=== PATIENT | male | born 1990 | race African-American/Black ===

== ENCOUNTER 2017-03-07 10:19 | Emergency (ER) | payer BC ==
[2017-03-07] MEDS ORDERED: CLINDAMYCIN 300 MG/D5W RTU 300 MG/50 ML RTUPB IV ONE (10:52)
[2017-03-07] MEDS ORDERED: KETOROLAC TROMETHAMINE INJ/PF 30 MG/1 ML SDV IV ONE (10:52)
[2017-03-07] MEDS ORDERED: DEXAMETHASONE SOD PHOS INJ 10 MG/1 ML VIAL IM ONE (10:52)
--- NOTE | 2017-03-07 11:30 | ER Document Report ---
ED ENT - General Chief Complaint: Sore Throat Stated Complaint: SORE THROAT Time Seen by Provider: 03/07/17 10:43 Mode of Arrival: Ambulatory Information source: Patient Notes: 27-year-old male presents to ED for complaint of sore throat with very enlarged tonsils with exudate sinus drainage and pressure and an earache. He states he has difficulty swallowing. TRAVEL OUTSIDE OF THE [place] IN LAST 30 DAYS: No - HPI Patient complains to provider of: Ear problem, Nose problem, Throat problem Onset: Yesterday Onset/Duration: Gradual Quality of pain: Achy, Dull, Sharp Severity: Moderate Pain Level: 3 Context: Recent Illness Location of pain: Ears, Nose, Sinus, Throat Associated symptoms: Ear pain, Fever, Runny nose, Sinus pain, Sinus drainage, Sore throat Similar symptoms previously: No Recently seen / treated by doctor: No - Related Data Allergies/Adverse Reactions: Penicillins Adverse Reaction (Verified 03/07/17 10:21) Past Medical History - General Information source: Patient - Social History Smoking Status: Never Smoker Cigarette use (# per day): No Chew tobacco use (# tins/day): No Smoking Education Provided: No Frequency of alcohol use: None Drug Abuse: None Lives with: Family Family History: Arthritis, Hypertension. denies: CAD, COPD, CVA, DM, Hyperlipidemia, Malignancy, Thyroid Disfunction Patient has suicidal ideation: No Patient has homicidal ideation: No - Past Medical History Cardiac Medical History: Reports: None Pulmonary Medical History: Reports: None EENT Medical History: Reports: None Neurological Medical History: Reports: None Endocrine Medical History: Reports: None Renal/ Medical History: Reports: None Malignancy Medical History: Reports None GI Medical History: Reports: None Musculoskeltal Medical History: Reports None Skin Medical History: Reports None Psychiatric Medical History: Reports: None Traumatic Medical History: Reports: None Infectious Medical History: Reports: None Surgical Hx: Negative Past Surgical History: Reports: None - Immunizations Immunizations up to date: Yes Hx Diphtheria, Pertussis, Tetanus Vaccination: Yes Review of Systems - Review of Systems Constitutional: No symptoms reported EENT: Mouth pain, Mouth swelling Cardiovascular: No symptoms reported Respiratory: No symptoms reported Gastrointestinal: No symptoms reported Genitourinary: No symptoms reported Male Genitourinary: No symptoms reported Musculoskeletal: No symptoms reported Skin: No symptoms reported Hematologic/Lymphatic: No symptoms reported Neurological/Psychological: No symptoms reported -: Yes All other systems reviewed and negative Physical Exam - Vital signs Vitals: Temp Pulse Resp BP Pulse Ox 98.4 F 68 13 134/69 H 98 03/07/17 10:22 03/07/17 10:22 03/07/17 10:22 03/07/17 10:22 03/07/17 10:22 Interpretation: Normal - General General appearance: Appears well, Alert - HEENT Head: Normocephalic, Atraumatic Eyes: Normal Pupils: PERRL Ears: Normal External canal: Normal Tympanic membrane: Normal Sinus: Normal Nasal: Normal Mouth/Lips: Normal Pharynx: Exudate, Post nasal drainage, Retropharyngeal abscess, Tonsillar hypertrophy. No: Uvular edema, Potential airway comprom. - Respiratory Respiratory status: No respiratory distress Chest status: Nontender Breath sounds: Normal Chest palpation: Normal - Cardiovascular Rhythm: Regular Heart sounds: Normal auscultation Murmur: No - Abdominal Inspection: Normal Distension: No distension Bowel sounds: Normal Tenderness: Nontender Organomegaly: No organomegaly - Back Back: Normal, Nontender - Extremities General upper extremity: Normal inspection, Nontender, Normal color, Normal ROM , Normal temperature General lower extremity: Normal inspection, Nontender, Normal color, Normal ROM , Normal temperature, Normal weight bearing. No: Cristal's sign - Neurological Neuro grossly intact: Yes Cognition: Normal Orientation: AAOx4 Spencer Coma Scale Eye Opening: Spontaneous Spencer Coma Scale Verbal: Oriented Dahlia Coma Scale Motor: Obeys Commands Spencer Coma Scale Total: 15 Speech: Normal Motor strength normal: LUE, RUE, LLE, RLE Sensory: Normal - Psychological Associated symptoms: Normal affect, Normal mood - Skin Skin Temperature: Warm Skin Moisture: Dry Skin Color: Normal Course - Re-evaluation Re-evalutation: 03/07/17 18:48 Patient strep test was negative in the ER. He was treated with clindamycin Toradol and Decadron for his very enlarged tonsils with exudate. His mono test was also negative. Patient was discharged home with prescription for prednisone and clindamycin as she is allergic to penicillin. Patient instructed to follow-up with primary doctor or return to ED for any complications. - Vital Signs Vital signs: Temp Pulse Resp BP Pulse Ox 98.1 F 75 18 120/62 99 03/07/17 12:32 03/07/17 12:32 03/07/17 12:32 03/07/17 12:32 03/07/17 12:32 - Laboratory Result Diagrams: 03/07/17 11:03 Laboratory results interpreted by me: 03/07/17 11:03 Monocytes % 19.8 H Absolute Monocytes 1.6 H Discharge - Discharge Clinical Impression: Sore throat Condition: Stable Disposition: HOME, SELF-CARE Additional Instructions: SORE THROAT: Sore throats may be caused by viruses, bacteria, or fungi. Most are due to a virus, and must get better on their own. Bacterial sore throats, particularly those due to "strep," need treatment with antibiotics. If an antibiotic is prescribed, be sure to take the medication for a full 10 days. Failure to take the antibiotic can result in complications such as rheumatic fever. Sometimes, an injection of antibiotics is given instead of pills or liquid. This single "shot" is equal in effectiveness to the oral medication. To relieve symptoms, take acetaminophen for pain. Sip clear liquids frequently, or eat popsicles or ice chips. Anesthetic sprays or lozenges may help. Make sure the air in the room is not too dry. Avoid using decongestants or antihistamines. Call the doctor if there is no improvement in two days, or if you have difficulty breathing, increasing throat pain, high fever, rash, or frequent vomiting. ORAL NARCOTIC MEDICATION: You have been given a prescription for pain control. This medication is a narcotic. It's best taken with food, as nausea can result if taken on an empty stomach. Don't operate machinery or drive within six hours of taking this medication. Do not combine this medicine with alcohol, or with any medication which can cause sedation (such as cold tablets or sleeping pills) unless you get permission from the physician. Narcotics tend to cause constipation. If possible, drink plenty of fluids and eat a diet high in fiber and fruits. Please be aware that prescription narcotics also have the potential for abuse. People become addicted to these medications because of the general sense of wellbeing that they induce. This feeling along with a significant reduction in tension, anxiety, and aggression provides a stimulating seductive quality to these drugs. Once your pain is under control, we encourage you to discard your unused narcotics. STEROID MEDICATION: You have been given a medicine of the cortisone/steroid class. This medication is used to control inflammation or allergy. It is usually only given for a short period of time, until the acute process subsides. There are usually no side effects from short-term use of cortisone-like medications. Some persons feel an increased sense of well-being and are not sleepy at bedtime. Long-term use of cortisone medications is best avoided, unless required for a severe condition. If your condition does not remit, or relapses after the course of corticosteroid medication, you should consult your physician. Clindamycin You have been given a prescription for the antibiotic clindamycin. It is often prescribed for infections in the mouth, such as dental infections or abscesses, and for skin infections due to MRSA. It's important that you take all the medication, unless instructed otherwise by your physician. Failure to complete the entire course can result in relapse of your condition. Common side effects of antibiotics include nausea, intestinal cramping, or diarrhea. Women may develop vaginal yeast infections, and babies can get yeast (thrush) in the mouth following the use of antibiotics. Contact your physician if you develop significant side effects from this medication. Allergy to this antibiotic can result in hives, wheezing, faintness, or itching. If symptoms of allergy occur, stop the medication and call the doctor. FOLLOW-UP CARE: If you have been referred to a physician for follow-up care, call the physician s office for an appointment as you were instructed or within the next two days. If you experience worsening or a significant change in your symptoms, notify the physician immediately or return to the Emergency Department at any time for re-evaluation. Prescriptions: Clindamycin HCl 300 mg PO QID #48 capsule Prednisone [Deltasone 10 mg Tablet] 10 mg PO ASDIR PRN #21 tablet PRN Reason: Forms: Elevated Blood Pressure, Return to Work Referrals: PHYLLIS MANCIA DO [ASSOCIATE] - Follow up as needed
[2017-03-07 11:40] LABS: ABSOLUTE BASOPHILS # (AUTO) 0.1 10^3/uL (0.0-0.2); ABSOLUTE LYMPHOCYTES (AUTO) 1.3 10^3/uL (0.5-4.7); ABSOLUTE MONOCYTES (AUTO) 1.6 10^3/uL (0.1-1.4); ABSOLUTE NEUT (AUTO) 5.1 10^3/uL (1.7-8.2); EOSINOPHILS % (AUTO) 0.3 % (0-6); HEMATOCRIT 43.6 % (37.9-51.0); HEMOGLOBIN 14.6 g/dL (13.5-17.0); HGB HCT DIFFERENCE 0.2; LYMPHOCYTES % (AUTO) 16.3 % (13-45); MEAN CORPUSCULAR HEMOGLOBIN 29.3 pg (27.0-33.4); MEAN CORPUSCULAR HGB CONC 33.5 g/dL (32.0-36.0); MEAN CORPUSCULAR VOLUME 88 fl (80-97); MONOCYTES % (AUTO) 19.8 % (3-13); RED BLOOD COUNT 4.97 10^6/uL (4.35-5.55); RED CELL DISTRIBUTION WIDTH 13.9 % (11.5-14.0); SEGMENTED NEUTROPHILS % (AUTO) 62.6 % (42-78); WHITE BLOOD COUNT 8.2 10^3/uL (4.0-10.5)
[2017-03-07 12:33] VITALS: BP 120/62
== END 2017-03-07 12:32 | disposition home or self-care (01) ==
LOC: ER 10:19
DX: J02.9 Acute pharyngitis, unspecified (principal); H92.09 Otalgia, unspecified ear; R13.10 Dysphagia, unspecified
CPT/HCPCS: 99283; 96372; 96375; 96365; 36415; 87070; 87880; 85025; 87077; 86308; J3490; J1885; J1100

== ENCOUNTER 2019-10-02 08:59 | Emergency (ER) | payer BC ==
--- NOTE | 2019-10-02 10:05 | ER Document Report ---
ED General - General Chief Complaint: Sore Throat Stated Complaint: FEVER/SORE THROAT Notes: 29-year-old male presents with abrupt onset throat pain odynophagia and right- sided lymphadenopathy 2 days ago without cough or shortness of breath. No fever no COVID exposure, history of strep throat almost every year. Penicillin allergy. TRAVEL OUTSIDE OF THE [place] IN LAST 30 DAYS: No - Related Data Allergies/Adverse Reactions: Penicillins Adverse Reaction (Verified 03/07/17 10:21) Past Medical History - Social History Smoking Status: Current Every Day Smoker Smoking Education Provided: Yes - The patient ED visit today was directly related to their abuse of tobacco. Frequency of alcohol use: Social Drug Abuse: None Family History: Arthritis, Hypertension. denies: CAD, COPD, CVA, DM, Hyperlipidemia, Malignancy, Thyroid Disfunction Patient has homicidal ideation: No Renal/ Medical History: Denies: Hx Peritoneal Dialysis - Immunizations Immunizations up to date: Yes Hx Diphtheria, Pertussis, Tetanus Vaccination: Yes Review of Systems - Review of Systems Notes: REVIEW OF SYSTEMS GEN: Objective fever ENT: Throat pain and diet aphasia EYES: Denies blurry vision, eye pain, discharge CV: Denies chest pain, palpitations, edema RESP: Denies cough, shortness of breath, wheezing GI: Denies abdominal pain, nausea, vomiting, diarrhea MSK: Denies joint pain/swelling, edema, SKIN: Denies rash, skin lesions LYMPH: Denies swollen glands/lymph nodes NEURO: Denies headache, focal weakness or numbness, dizziness PSYCH: Denies depression, suicidal or homicidal ideation PHYSICAL EXAMINATION General: No acute distress, well-nourished Head: Atraumatic, normocephalic ENT: Erythematous pharynx with exudate, midline uvula no trismus normal voice Eyes: Conjunctiva normal, pupils equal, lids normal Neck: No JVD, supple, no guarding CVS: Normal rate, regular rhythm, no murmurs Resp: No resp distress, equal and normal breath sounds bilaterally GI: Nondistended, soft, no tenderness to palpation, no rebound or guarding Ext: No deformities, no edema, normal range of motion in upper and lower ext Back: No CVA or midline TTP Skin: No rash, warm Lymphatic: Cervical lymphadenopathy tender Neuro: Awake, alert. Face symmetric. GCS 15. Physical Exam - Vital signs Vitals: Temp 99.1 F 05/21/20 08:59 Course - Re-evaluation Re-evalutation: 10/02/19 10:05 Clinical strep pharyngitis Clindamycin, Motrin saltwater gargle etc. No signs of deep space infection doubt coronavirus We will treat based on symptoms. Test is been sent and is pending. Insert discharge I have discussed with the patient there likely diagnosis, aftercare plan, follow-up plans and my usual and customary return precautions. They verbalized understanding of this. - Vital Signs Vital signs: Temp Pulse Resp BP Pulse Ox 99.1 F 73 18 117/71 100 10/02/19 09:21 10/02/19 09:21 10/02/19 09:21 10/02/19 09:21 10/02/19 09:21 Discharge - Discharge Clinical Impression: Pharyngitis Qualifiers: Pharyngitis/tonsillitis etiology: unspecified etiology Qualified Code(s): J02.9 - Acute pharyngitis, unspecified Condition: Good Disposition: HOME, SELF-CARE Instructions: Sore Throat ([facility]) Prescriptions: Clindamycin HCl [Cleocin HCl] 150 mg PO TID #30 capsule Forms: Parent Work Note
[2019-10-02 10:38] VITALS: BP 123/76
== END 2019-10-02 10:38 | disposition home or self-care (01) ==
LOC: ER 08:59
DX: J02.9 Acute pharyngitis, unspecified (principal); R13.10 Dysphagia, unspecified; F17.200 Nicotine dependence, unspecified, uncomplicated; Z88.0 Allergy status to penicillin
CPT/HCPCS: 87070; 87077; 87880; 99283

== ENCOUNTER 2019-11-09 15:30 | Emergency (ER) | payer BC | END 2019-11-09 16:04 | disposition left against medical advice (07) | LOC: ER 15:30 | DX: Z53.21 Procedure and treatment not carried out due to patient leaving prior to being seen by health care provider (principal) ==

== ENCOUNTER 2019-11-10 09:55 | Emergency (ER) | payer BC ==
--- NOTE | 2019-11-10 11:54 | ER Document Report ---
Entered by EMMANUEL THAYER SCRIBE 11/10/19 1144 Acting as scribe for:TALI CARRASCO MD ED ENT - General Chief Complaint: Sore Throat Stated Complaint: SORE THROAT Time Seen by Provider: 11/10/19 11:34 Notes: This 29-year-old male patient comes emergency room complaining of sore throat that started 2 days ago. He reports he had a temperature of 100 degrees on Sunday, and some chills. He took Tylenol and Motrin and that would control the fever. He did take the Tylenol and Motrin also 1 hour prior to arrival to the emergency room. He was seen here on 10/02/2019 with fever sore throat and exudative tonsillitis. Rapid strep test was negative, culture grew group C beta-hemolytic strep. He was discharged on a 10-day course of clindamycin and reports that that infection did seem to go away. He reports the week of October 27 he was in [place] and was exposed to a patient who had recently come out of quarantine after having tested positive for COVID virus. He does not have any respiratory symptoms or GI symptoms. TRAVEL OUTSIDE OF THE [place] IN LAST 30 DAYS: No - Related Data Allergies/Adverse Reactions: Penicillins Adverse Reaction (Verified 03/07/17 10:21) Past Medical History - General Information source: Patient - Social History Smoking Status: Unknown if Ever Smoked Cigarette use (# per day): No Frequency of alcohol use: None Drug Abuse: None Family History: Arthritis, Hypertension - Immunizations Immunizations up to date: Yes Hx Diphtheria, Pertussis, Tetanus Vaccination: Yes Review of Systems - Review of Systems Constitutional: See HPI, Chills, Fever - not today, previously EENT: See HPI, Throat pain Cardiovascular: No symptoms reported Respiratory: No symptoms reported Gastrointestinal: No symptoms reported Genitourinary: No symptoms reported Male Genitourinary: No symptoms reported Musculoskeletal: No symptoms reported Skin: No symptoms reported Hematologic/Lymphatic: No symptoms reported Neurological/Psychological: No symptoms reported -: Yes All other systems reviewed and negative Physical Exam - Vital signs Vitals: Temp Pulse Resp BP Pulse Ox 98.2 F 65 16 119/64 98 11/10/19 10:06 11/10/19 10:06 11/10/19 10:11/10/19 10:11/10/19 10:06 - General General appearance: Appears well, Alert In distress: None - HEENT Head: Normocephalic, Atraumatic Eyes: Normal Pupils: PERRL Ears: Normal Nasal: Normal Pharynx: Erythema, Exudate. No: Uvular edema Neck: Other - Tender lymph nodes in the right anterior cervical region at the angle of the jaw. - Respiratory Respiratory status: No respiratory distress Breath sounds: Normal - Cardiovascular Rhythm: Regular - Abdominal Inspection: Normal - Back Back: Normal - Extremities General upper extremity: Normal inspection General lower extremity: Normal inspection - Neurological Neuro grossly intact: Yes - Psychological Associated symptoms: Normal affect, Normal mood - Skin Skin Temperature: Warm Skin Moisture: Dry Skin Color: Normal Course - Re-evaluation Re-evalutation: 11/10/19 13:49 The patient was seen here on 10/03/2019, with a similar appearing exudative pharyngitis. The throat culture grew group C beta-hemolytic strep. He was treated with clindamycin for 10 days and reports that he got better. No blood work was done on that visit. Today he returns with a 2-day history of the same sore throat with fever and chills. The appearance of his throat today is similar to what was described on his ER visit 5 weeks ago. Lab work today showed a negative rapid strep, a negative Monospot. The CBC shows a WBC of 10,200, with 71 segs, 13 lymphs, and 13 monocytes. We will cover him with Cipro, as it provide similar coverage to clindamycin. We will COVID test him and recommend self-isolation. 11/10/19 13:55 - Vital Signs Vital signs: Temp Pulse Resp BP Pulse Ox 98.2 F 65 16 119/64 98 11/10/19 10:06 11/10/19 10:06 11/10/19 10:06 11/10/19 10:06 11/10/19 10:06 - Laboratory Result Diagrams: 11/10/19 12:00 11/10/19 12:00 Laboratory results interpreted by me: 11/10/19 11/10/19 12:00 12:00 Hgb 13.1 L [place] % (Auto) 13.3 H Sodium 135.2 L Anion Gap 4 L Total Protein 6.2 L Discharge - Discharge Clinical Impression: Exudative pharyngitis, Encounter for laboratory testing for COVID-19 virus Fever Qualifiers: Fever type: unspecified Qualified Code(s): R50.9 - Fever, unspecified Condition: Stable Disposition: HOME, SELF-CARE Additional Instructions: Sore Throat Sore throats may be caused by viruses, bacteria, or fungi. Most are due to a virus, and must get better on their own. Bacterial sore throats, particularly those due to "strep," need treatment with antibiotics. If an antibiotic is prescribed, be sure to take the medication for a full 10 days. Failure to take the antibiotic can result in complications such as rheumatic fever. Sometimes, an injection of antibiotics is given instead of pills or liquid. This single "shot" is equal in effectiveness to the oral medication. To relieve symptoms, take acetaminophen for pain. Sip clear liquids frequently, or eat popsicles or ice chips. Anesthetic sprays or lozenges may help. Make sure the air in the room is not too dry. Avoid using decongestants or antihistamines. Call the doctor if there is no improvement in two days, or if you have difficulty breathing, increasing throat pain, high fever, rash, or frequent vomiting. Your rapid strep test for group A beta-hemolytic strep today was negative. That is the strep organism known to cause strep throat. A mononucleosis test was also done and it is negative. Five weeks ago when you were here your strep test was negative, but the culture grew a group C beta-hemolytic strep which was sensitive to the clindamycin you are treated with. Your lab work today suggests that this may be a viral type infection. In case you do grow another strep type infection in the culture today, we will cover you with a different antibiotic called Zithromax. A COVID test was done today and the results should be available and 2 to 3 days. You should self quarantine at home until you get the results of the test. Drink plenty of fluids, get plenty of rest, take Tylenol and ibuprofen for pain and fever as needed. Follow-up with a local primary care provider if not improving. RETURN TO THE EMERGENCY ROOM IF ANY NEW OR WORSENING SYMPTOMS. Prescriptions: Azithromycin [Zithromax 250 mg Tablet] 250 mg PO ASDIR #6 tablet Forms: Return to Work I personally performed the services described in the documentation, reviewed and edited the documentation which was dictated to the scribe in my presence, and it accurately records my words and actions.
[2019-11-10 12:18] LABS: ABSOLUTE BASOPHILS # (AUTO) 0.1 10^3/uL (0.0-0.2); ABSOLUTE EOSINOPHILS # (AUTO) 0.2 10^3/uL (0.0-0.6); ABSOLUTE LYMPHOCYTES (AUTO) 1.3 10^3/uL (0.5-4.7); ABSOLUTE MONOCYTES (AUTO) 1.3 10^3/uL (0.1-1.4); ABSOLUTE NEUT (AUTO) 7.2 10^3/uL (1.7-8.2); BASOPHILS % (AUTO) 0.6 % (0-2); EOSINOPHILS % (AUTO) 1.8 % (0-6); HEMATOCRIT 38.5 % (37.9-51.0); HEMOGLOBIN 13.1 g/dL (13.5-17.0); LYMPHOCYTES % (AUTO) 13.2 % (13-45); MEAN CORPUSCULAR HGB CONC 33.9 g/dL (32.0-36.0); MEAN CORPUSCULAR VOLUME 88 fl (80-97); MONOCYTES % (AUTO) 13.3 % (3-13); PLATELET COUNT 168 10^3/uL (150-450); RED BLOOD COUNT 4.35 10^6/uL (4.35-5.55); RED CELL DISTRIBUTION WIDTH 13.7 % (11.5-14.0); SEGMENTED NEUTROPHILS % (AUTO) 71.1 % (42-78); TOTAL CELLS COUNTED % (AUTO) 100 %; WHITE BLOOD COUNT 10.2 10^3/uL (4.0-10.5)
[2019-11-10 12:44] LABS: ALBUMIN 3.6 g/dL (3.5-5.0); ALKALINE PHOSPHATASE 44 U/L (38-126); ASPARTATE AMINO TRANSFERASE 22 U/L (17-59); BILIRUBIN,TOTAL 0.3 mg/dL (0.2-1.3); BLOOD UREA NITROGEN 17 mg/dL (7-20); CALCIUM 8.4 mg/dL (8.4-10.2); CARBON DIOXIDE 27 mmol/L (22-30); CHLORIDE 104 mmol/L (98-107); GLUCOSE 87 mg/dL (75-110); POTASSIUM 4.7 mmol/L (3.6-5.0); TOTAL PROTEIN 6.2 g/dL (6.3-8.2)
[2019-11-10 12:51] LABS: ANION GAP 4 (5-19)
[2019-11-10 14:48] VITALS: BP 128/76
== END 2019-11-10 14:50 | disposition home or self-care (01) ==
LOC: ER 09:55
DX: J02.9 Acute pharyngitis, unspecified (principal); R50.9 Fever, unspecified; Z20.828 Contact with and (suspected) exposure to other viral communicable diseases; Z88.0 Allergy status to penicillin
CPT/HCPCS: 99283; 36415; 87070; 87880; 85025; 87635; 87077; 86308; 80053; C9803